=== PATIENT | male | born 2000 | race Asian ===

== ENCOUNTER 2022-12-28 16:54 | Emergency (ER) | payer OTHER ==
[~2022-12-28] VITALS: Ht 170.2 cm; Wt 53.1 kg
[2022-12-28 18:39] VITALS: BP 128/62; PULSE 72; RESP 16; O2SAT 100
[2022-12-28] MEDS ORDERED: TETANUS/DIPHTHERIA TOXOID [ADULT] 0.5 ML VIAL IM ONE (20:00)
[2022-12-28 20:51] LABS: HIV 1&2 ANTIBODY Non-Reactive (Negative); HIV-1 p24 Antigen Non-Reactive (Negative)
[2022-12-30 01:06] LABS: HEPATITIS A IGM ANTIBODY Non-Reactive (Nonreactive); HEPATITIS B CORE IGM ANTIBODY Non-Reactive (Negative); HEPATITIS B SURFACE ANTIGEN Non-Reactive (Nonreactive); HEPATITIS C ANTIBODY Non-Reactive (Nonreactive)
[2022-12-30] MEDS ORDERED: DOLU50TA PO (15:46)
[2022-12-30] MEDS ORDERED: EMTR1TAB11 PO (15:46)
== END 2022-12-28 22:34 | disposition home or self-care (01) ==
LOC: EDH 16:54
DX: Z77.21 Contact with and (suspected) exposure to potentially hazardous body fluids (principal)
CPT/HCPCS: 36415; 80074; 86701; 87390; 90471; 90714